=== PATIENT | male | born 1995 | race Caucasian/White ===

== ENCOUNTER 2020-03-16 12:56 | Outpatient (CLI) | payer OTHER ==
--- NOTE | 2020-03-16 18:50 | CT ---
CT ABDOMEN AND PELVIS WITH IV CONTRAST: Date: 03/16/2020 HISTORY: Right lower quadrant pain. FINDINGS: The lung bases are clear. The liver, spleen, pancreas, adrenal glands, and kidneys are normal. No roberto cified gallstones are seen. There are a few prominent but nonenlarged lymph nodes in the retroperiton eum. A circumaortic left renal vein is present. No free air is seen. There is a tiny amount of free f luid in the pelvis. The small bowel loops are not abnormally dilated. An abnormal appendix is not vis ualized. The bony structures are unremarkable. IMPRESSION: 1. Tiny amount of free fluid in the pelvis. 2. No definite evidence of appendicitis. [facility]: [facility]
== END 2020-03-16 12:57 | disposition home or self-care (01) ==
LOC: MADCT 12:56
PROVIDERS: ATTEND Nurse Practitioner Family
DX: R10.31 Right lower quadrant pain (principal)
CPT/HCPCS: 74177